=== PATIENT | male | born 1935 | race Caucasian/White ===

== ENCOUNTER 2019-11-04 13:28 | Emergency (ER) | payer OTHER, BC ==
--- NOTE | 2019-11-04 15:01 | RAD REPORT ---
EXAM DESCRIPTION: RAD - Humerus Right - 11/04/2019 2:30 pm CLINICAL HISTORY: Right arm pain status post fall FINDINGS: A humeral fracture is not seen A sclerotic density overlies the lateral scapula. This could represent a fracture or overlapping of n ormal structures. If the patient has scapular pain then CT would be recommended
--- NOTE | 2019-11-04 15:15 | ER ---
Nurse's Notes 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 Transition of care: patient was not received from another setting of care. Onset of symptoms was November 04, 2019. Risk Assessment: Do you want to hurt yourself or someone else? Patient reports no desire to harm self or others. Initial Sepsis Screen: Does the patient meet any 2 criteria? No. Patient's initial sepsis screen is negative. Does the patient have a suspected source of infection? No. Patient's initial sepsis screen is negative. Care prior to arrival: None. 13:41 Method Of Arrival: Ambulatory hb 13:41 Acuity: KANNAN 4 hb Historical: - Allergies: 13:42 No Known Allergies; hb - Home Meds: 13:42 levothyroxine 150 mcg tab 1 tab once daily [Active]; propafenone 225 mg Oral tab 1 tab hb twice a day [Active]; Xarelto 20 mg Oral tab once daily [Active]; - PMHx: 13:42 Atrial Fib; Hypothyroidism; hb - PSHx: 13:42 Appendectomy; Disc surgery; Urolift; hb - Immunization history:: Adult Immunizations up to date. - Social history:: Smoking status: Patient/guardian denies using tobacco. - Ebola Screening: : No symptoms or risks identified at this time. Screenin:03 Abuse screen: Denies threats or abuse. Nutritional screening: No deficits noted. ae4 Tuberculosis screening: No symptoms or risk factors identified. Fall Risk None identified. Assessment: 14:00 General: Appears in no apparent distress. uncomfortable, Behavior is calm, cooperative. ae4 Pain: Complains of pain in right bicep. Neuro: Level of Consciousness is awake, alert, obeys commands, Oriented to person, place, time, situation. Cardiovascular: Patient's skin is warm and dry. Respiratory: Airway is patent Respiratory effort is even, unlabored, Respiratory pattern is regular, symmetrical. GI: No signs and/or symptoms were reported involving the gastrointestinal system. Abdomen is round non-distended. : No signs and/or symptoms were reported regarding the genitourinary system. EENT: wears glasses.. Derm: Skin is pale. Musculoskeletal: no visual deformity or bruising to right upper arm. 14:58 Reassessment: Patient appears in no apparent distress at this time. No changes from ae4 previously documented assessment. Patient and/or family updated on plan of care and expected duration. Pain level reassessed. Patient up to restroom, ambulated with steady gait. Vital Signs: 13:42 BP 179 / 89; Pulse 60; Resp 16; Temp 97.8; Pulse Ox 97% on R/A; Weight 88.45 kg; Height hb 5 ft. 11 in. (180.34 cm); Pain 9/10; 14:00 BP 154 / 73; Pulse 57; Resp 16; Pulse Ox 96% on R/A; ae4 13:42 Body Mass Index 27.20 (88.45 kg, 180.34 cm) hb ED Course: 13:31 Patient arrived in ED. as 13:40 [facility]C [facility] la1 13:40 Sal Arita MD is Attending Physician. la1 13:42 Triage completed. hb 13:42 Arm band placed on. hb 13:58 Jessee Lobo, RN is Primary Nurse. ae4 14:03 Bed in low position. Call light in reach. Pulse ox on. NIBP on. ae4 14:33 Humerus Right XRAY In Process Unspecified. EDMS 15:32 Sling applied to right arm. ae4 15:32 No provider procedures requiring assistance completed. Patient did not have IV access ae4 during this emergency room visit. Administered Medications: No medications were administered Outcome: 15:14 Discharge ordered by . la1 15:32 Discharged to home ambulatory. ae4 15:32 Condition: stable 15:32 Discharge instructions given to patient, Instructed on discharge instructions, follow up and referral plans. Demonstrated understanding of instructions. 15:33 Patient left the ED. ae4 Signatures: Dispatcher [employer] EDMS Leny Acosta as Allen Munoz FNP-C CLAMMER-Cla1 Rand Ross RN RN Jessee Lobo, RONN RN ae4
--- NOTE | 2019-11-04 15:16 | EDPHYS ---
Physician Documentation [facility] Name: Edilberto Son Age: 84 yrs Sex: Male : 1935 Arrival Date: 11/04/2019 Time: 13:31 Bed 20 Private MD: ED Physician Sal Arita HPI: 11/04 13:53 This 84 yrs old Male presents to ER via Ambulatory with complaints of la1 Shoulder Pain. 13:53 The patient or guardian complains of pain, that is acute. Right proximax humerus. la1 Context: [place], resulted from a fall, from a standing position, The patient experiences decreased range of motion, when attempts to raise arm, The patient reports no obvious deformity. Onset: The symptoms/episode began/occurred 3 hour(s) ago. Modifying factors: the symptoms are alleviated by OTC meds, The symptoms are aggravated by lifting weight, movement. Associated signs and symptoms: Pertinent negatives: abdominal pain, chest pain, diaphoresis, neck pain, Numbness in right arm. Severity of symptoms: At their worst the symptoms were mild. Pt reports mechanical fall from standing with impact to right shoulder area, pain with elevation or abduction of right arm. Historical: - Allergies: 13:42 No Known Allergies; hb - Home Meds: 13:42 levothyroxine 150 mcg tab 1 tab once daily [Active]; propafenone 225 mg Oral tab 1 tab hb twice a day [Active]; Xarelto 20 mg Oral tab once daily [Active]; - PMHx: 13:42 Atrial Fib; Hypothyroidism; hb - PSHx: 13:42 Appendectomy; Disc surgery; Urolift; hb - Immunization history:: Adult Immunizations up to date. - Social history:: Smoking status: Patient/guardian denies using tobacco. - Ebola Screening: : No symptoms or risks identified at this time. ROS: 13:55 Constitutional: Negative for fever, chills, and weight loss, Eyes: Negative for injury, la1 pain, redness, and discharge, ENT: Negative for injury, pain, and discharge, Neck: Negative for injury, pain, and swelling, Cardiovascular: Negative for chest pain, palpitations, and edema, Respiratory: Negative for shortness of breath, cough, wheezing, and pleuritic chest pain, Abdomen/GI: Negative for abdominal pain, nausea, vomiting, diarrhea, and constipation, Back: Negative for injury and pain, : Negative for injury, bleeding, discharge, and swelling, MS/Extremity: Negative for injury and deformity. 13:55 MS/extremity: Positive for pain, of the right arm. Exam: 13:56 Constitutional: This is a well developed, well nourished patient who is awake, alert, la1 and in no acute distress. Head/Face: Normocephalic, atraumatic. Eyes: Pupils equal round and reactive to light, extra-ocular motions intact. Skin: Warm, dry with normal turgor. Normal color with no rashes, no lesions, and no evidence of cellulitis. 13:56 Musculoskeletal/extremity: Extremities: noted in the right bicep and right tricep: pain, ROM: limited active range of motion due to pain, limited passive range of motion due to pain, in the right arm, Circulation is intact in all extremities. Pulses: noted to be 3+ in the right radial artery and left radial artery, Perfusion: the extremity is pink, warm, with brisk capillary refill. Vital Signs: 13:42 BP 179 / 89; Pulse 60; Resp 16; Temp 97.8; Pulse Ox 97% on R/A; Weight 88.45 kg; Height hb 5 ft. 11 in. (180.34 cm); Pain 9/10; 14:00 BP 154 / 73; Pulse 57; Resp 16; Pulse Ox 96% on R/A; ae4 13:42 Body Mass Index 27.20 (88.45 kg, 180.34 cm) hb MDM: 13:40 Patient medically screened. la1 15:12 Data reviewed: vital signs, nurses notes, radiologic studies, and as a result, I will la1 discharge patient. Data interpreted: Pulse oximetry: on room air is 96 %. Interpretation: normal. Counseling: I had a detailed discussion with the patient and/or guardian regarding: the historical points, exam findings, and any diagnostic results supporting the discharge/admit diagnosis, radiology results, the need for outpatient follow up, a family practitioner, a orthopedic surgeon, to return to the emergency department if symptoms worsen or persist or if there are any questions or concerns that arise at home. ED course: Xray mentioned concern for pain in scapula, Pt is non-tender in that area and did not have a significant mechanism of injury. Recommended FU with ortho for further evaluation. . 11/04 13:50 Order name: Humerus Right XRAY; Complete Time: 15:06 la1 11/04 15:28 Order name: Sling; Complete Time: 15:28 ae4 Administered Medications: No medications were administered Disposition: 16:02 Co-signature as Attending Physician, Sal Arita MD I agree with the assessment and kdr plan of care. Disposition: 11/04/19 15:14 Discharged to Home. Impression: Pain in right shoulder. - Condition is Stable. - Discharge Instructions: Joint Pain, Musculoskeletal Pain, Shoulder Pain. - Medication Reconciliation Form, Thank You Letter form. - Follow up: Private Physician; When: 2 - 3 days; Reason: Recheck today's complaints, Re-evaluation by your physician. - Problem is new. - Symptoms have improved. Signatures: Dispatcher [employer] EDAL Sal Arita MD MD [facility] Allen Munoz, SHELL PRESS OPERATOR-C SHELL PRESS OPERATOR-Cla1 Rand Ross, RONN RN Jessee Lobo RN RN ae4 Corrections: (The following items were deleted from the chart) 14:07 13:49 Humerus Left+RAD.RAD.BRZ ordered. [facility] EDAL 15:33 15:14 11/04/2019 15:14 Discharged to Home. Impression: Pain in right shoulder. ae4 Condition is Stable. Forms are Medication Reconciliation Form, Thank You Letter, Antibiotic Education, Prescription Opioid Use. Follow up: Private Physician; When: 2 - 3 days; Reason: Recheck today's complaints, Re-evaluation by your physician. Problem is new. Symptoms have improved. la1
[2019-11-04 15:43] VITALS: TEMP 97.8
[2019-11-04 15:44] VITALS: BP 154/73; O2SAT 96
== END 2019-11-04 15:33 | disposition home or self-care (01) ==
LOC: ER 13:28
DX: M25.511 Pain in right shoulder (principal); E03.9 Hypothyroidism, unspecified; I48.91 Unspecified atrial fibrillation; Z79.01 Long term (current) use of anticoagulants
CPT/HCPCS: 99283

== ENCOUNTER 2024-01-25 05:56 | Observation (INO) | payer OTHER, BC ==
[2024-01-25 06:58] LABS: Absolute Basophils 0.1 K/uL (0-0.5); Absolute Eosinophils 0.1 K/uL (0-0.5); Absolute Lymphocytes (CBC) 2.2 K/uL (0.7-4.9); Absolute Monocytes 1.6 K/uL (0.1-1.3); Absolute Neutrophil 4.3 K/uL (1.8-8.0); Basophils % 0.8 % (0-1.3); Eosinophils % 1.2 % (0-4.4); Hematocrit 41.7 % (39.6-49.0); Lymphocytes % 26.1 % (15.3-44.8); MCH 30.3 pg (27.0-35.0); MCHC 33.6 g/dL (32.0-36.0); MCV 90.2 fL (80-100); MPV 8.1 fL (7.6-11.3); Monocytes % 19.7 % (3.3-12.3); Neutrophils % 52.2 % (41.7-73.7); Nucleated Red Blood Cells % 0.1 % (0-0); Platelets 192 thou/uL (152-406); RBC Red Blood Cell Count 4.62 M/uL (4.33-5.43); Red Cell Distribution Width 13.2 % (12.1-15.2)
--- NOTE | 2024-01-25 07:04 | RAD REPORT ---
EXAM DESCRIPTION: RAD - Chest Single View - 01/25/2024 6:38 am CLINICAL HISTORY: CHEST PAIN COMPARISON: Chest Pa And Lat (2 Views) dated 09/15/2016; CHEST SINGLE VIEW dated 12/06/2013; CHEST SIN GLE VIEW dated 07/31/2012; CHEST SINGLE VIEW dated 11/18/2010; CHEST PA AND LAT 2 VIEW dated 06/25/2007 FINDINGS: Lines: None. Lungs: No evidence of edema or pneumonia. Pleural: No significant pleural effusions or pneumothorax. Cardiac: The heart size is within normal limits. Mediastinum: Within normal limits. Bones: No acute fractures. Other: None IMPRESSION: No acute cardiopulmonary disease.
[2024-01-25 07:09] LABS: Anion Gap 9.1 mEq/L (5.0-15.0); Potassium 4.1 mEq/L (3.5-5.1)
--- NOTE | 2024-01-25 07:55 | RAD REPORT ---
EXAM DESCRIPTION: CT - Head Brain Wo Cont - 01/25/2024 7:46 am CLINICAL HISTORY: DIZZINESS COMPARISON: Head Brain Wo Cont dated 12/03/2018; HEAD BRAIN W O CONTRAST dated 01/28/2016 TECHNIQUE: All CT scans are performed using dose optimization technique as appropriate and may inclu de automated exposure control or mA/KV adjustment according to patient size. FINDINGS: No intracranial hemorrhage, hydrocephalus or extra-axial fluid collection.No areas of brai n edema or evidence of midline shift. Mild chronic small vessel ischemic changes. Trace right mastoid fluid. Ethmoid air cell thickening. The calvarium is intact. IMPRESSION: No acute intracranial abnormality.
[2024-01-25 08:00] LABS: Band Neutrophils 3 % (0-1); Differential Total Cells Count 100; Eosinophils 1 % (0-3); Lymphocytes 30 % (15-42); Monocytes 13 % (0-10); Segmented Neutrophils 52 % (40-80); White Blood Cell Scan OK (OK)
[2024-01-25 08:01] LABS: Blood Morphology Comment NOT SEEN (NOT SEEN); Platelet Estimate ADEQ
--- NOTE | 2024-01-25 08:29 | RAD REPORT ---
EXAM DESCRIPTION: CT - C Spine Wo Con - 01/25/2024 8:18 am CLINICAL HISTORY: fall COMPARISON: No comparisons TECHNIQUE: CT Scan was obtained of the cervical spine without contrast. Reformats were provided in t he sagittal and coronal plane. FINDINGS: No acute fracture of the cervical spine. No traumatic malalignment. No prevertebral edema. No significant focal degenerative changes. No suspicious thyroid nodules or lymphadenopathy. The luis fernando g apices are clear. Multilevel degenerative changes are present in the spine. Neural foraminal narrow ing is severe on the left C3-C4, moderate bilaterally at C4-C5, and on the right at C5-C6. IMPRESSION: No fracture or traumatic malalignment of the cervical spine.
--- NOTE | 2024-01-25 09:04 | ER ---
Nurse's Notes [facility] Name: Edilberto Son Age: 88 yrs Sex: Male : 1935 Arrival Date: 01/25/2024 Time: 05:56 Bed 15 Private MD: Diagnosis: Chest pain, unspecified;Dizziness and giddiness;Fall on same level, unspecified;Elevated blood-pressure reading, without diagnosis of hypertension Presentation: 01/24 06:20 Chief complaint: Patient states: I have been having congestion and soar throat for the jb4 past week and for the past 2 days I have been having dizziness and shortness of breath. Coronavirus screen: At this time, the client does not indicate any symptoms associated with coronavirus-19. Ebola Screen: No symptoms or risks identified at this time. Initial Sepsis Screen: Does the patient meet any 2 criteria? No. Patient's initial sepsis screen is negative. Does the patient have a suspected source of infection? No. Patient's initial sepsis screen is negative. Risk Assessment: Do you want to hurt yourself or someone else? Patient reports no desire to harm self or others. Onset of symptoms was January 25, 2024. Transition of care: patient was not received from another setting of care. 06:20 Method Of Arrival: Ambulatory jb4 06:20 Acuity: KANNAN 3 jb4 Triage Assessment: 06:23 General: Appears in no apparent distress. comfortable, Behavior is calm, cooperative. jb4 Pain: Denies pain. Cardiovascular: Patient's skin is warm and dry. Respiratory: Reports shortness of breath at rest Airway is patent Respiratory effort is even, unlabored, Respiratory pattern is regular, symmetrical. Historical: - Allergies: 06:23 No Known Allergies; jb4 - PMHx: 06:23 Atrial Fib; Hypothyroidism; jb4 - PSHx: 06:23 Appendectomy; jb4 - Immunization history:: Adult Immunizations not up to date. - Social history:: Smoking status: Patient denies any tobacco usage or history of. Screenin:44 [facility] ED Fall Risk Assessment (Adult) History of falling in the last 3 months, cm10 including since admission No falls in past 3 months (0 pts) Confusion or Disorientation No (0 pts) Intoxicated or Sedated No (0 pts) Impaired Gait Yes (1 pt) Mobility Assist Device Used No (0 pt) Altered Elimination No (0 pt) Score/Fall Risk Level 0 - 2 = Low Risk Oriented to surroundings, Maintained a safe environment, Hourly rounding (assess needs \T\ fall precautionary measures) done. Abuse screen: Denies threats or abuse. Denies injuries from another. Nutritional screening: No deficits noted. 07:00 Tuberculosis screening: No symptoms or risk factors identified. kc6 Assessment: 06:44 General: Appears in no apparent distress. comfortable, Behavior is calm, cooperative. cm10 06:45 Pain: Denies pain. Neuro: No deficits noted. Level of Consciousness is awake, alert, cm10 obeys commands, Oriented to person, place, time, situation, Reports difficulty swallowing since 1 year dizziness, since Thursday. Respiratory: No deficits noted. Airway is patent Respiratory effort is even, unlabored, Respiratory pattern is regular, symmetrical, Breath sounds are clear bilaterally. GI: No deficits noted. No signs and/or symptoms were reported involving the gastrointestinal system. : No deficits noted. No signs and/or symptoms were reported regarding the genitourinary system. EENT: No deficits noted. Reports difficulty swallowing. Derm: No deficits noted. Skin is intact, Skin is pink, warm \T\ dry. Musculoskeletal: No deficits noted. Range of motion: intact in all extremities. 07:11 Reassessment: Patient appears in no apparent distress at this time. No changes from 6 previously documented assessment. Patient and/or family updated on plan of care and expected duration. Pain level reassessed. Patient is alert, oriented x 3, equal unlabored respirations, skin warm/dry/pink. 08:04 Reassessment: Patient appears in no apparent distress at this time. No changes from kc6 previously documented assessment. Patient and/or family updated on plan of care and expected duration. Pain level reassessed. Patient is alert, oriented x 3, equal unlabored respirations, skin warm/dry/pink. 09:38 Reassessment: Patient appears in no apparent distress at this time. No changes from kc6 previously documented assessment. Patient and/or family updated on plan of care and expected duration. Pain level reassessed. Patient is alert, oriented x 3, equal unlabored respirations, skin warm/dry/pink. Vital Signs: 06:20 BP 157 / 70; Pulse 51; Resp 12; Temp 98.3(O); Pulse Ox 95% on R/A; Weight 79.38 kg (R); jb4 Height 5 ft. 4 in. (R); Pain 0/10; 07:11 BP 145 / 70; Pulse 45; Resp 14 S; Pulse Ox 98% on R/A; kc6 08:04 BP 144 / 74; Pulse 47; Resp 18 S; Pulse Ox 100% on R/A; kc6 09:38 BP 169 / 69; Pulse 49; Resp 18 S; Pulse Ox 100% on R/A; kc6 06:20 Body Mass Index 30.04 (79.38 kg, 162.56 cm) jb4 06:20 Pain Scale: Adult jb4 ED Course: 05:58 Patient arrived in ED. jj6 06:15 EKG done, by ED staff. cm10 06:23 Triage completed. jb4 06:23 Arm band placed on right wrist. jb4 06:24 EKG completed in triage. Results shown to MD. jb4 06:40 XRAY Chest (1 view) In Process Unspecified. EDMS 06:43 Basic Metabolic Panel Sent. cm10 06:43 CBC with Diff Sent. cm10 06:43 Troponin HS Sent. cm10 06:43 Initial lab(s) drawn, by ok, sent to lab. Inserted saline lock: 20 gauge in right cm10 forearm, using aseptic technique. Blood collected. 06:44 Patient maintains SpO2 saturation greater than 95% on room air. cm10 07:00 Report received from RONN Briggs. kc6 07:03 Patient has correct armband on for positive identification. Placed in gown. Bed in low cm10 position. Call light in reach. Side rails up X2. 07:04 Report given to RONN Riley. cm10 07:10 Rosemary Mello RN is Primary Nurse. kc6 07:35 James Beltran DO is Attending Physician. ms3 07:48 CT Head Brain wo Cont In Process Unspecified. EDMS 08:17 CT C Spine In Process Unspecified. EDMS 09:03 Lore Duke MD is Hospitalizing Provider. ms3 10:18 No provider procedures requiring assistance completed. Patient admitted, IV remains in kc6 place. Administered Medications: No medications were administered Medication: 06:44 VIS not applicable for this client. cm10 Outcome: 09:03 Decision to Hospitalize by Provider. ms3 10:18 Admitted to ER Hold. Please see [facility] for further documentation. kc6 10:18 Condition: good 10:18 Instructed on the need for admit, 14:53 Patient left the ED. kc6 Signatures: Dispatcher [employer] EDMS Hong Bryan, RN RN jb4 James Beltran DO DO ms3 Jaqueline Matsonj6 Rosemary Mello RN RN kc6 Brigitte Acosta RN RN cm10 Corrections: (The following items were deleted from the chart) 06:46 06:44 Pain: Denies pain. Pain does not radiate. Pain began cm10 cm10
--- NOTE | 2024-01-25 09:04 | EDPHYS ---
Physician Documentation [facility] Name: Edilberto Son Age: 88 yrs Sex: Male : 1935 Arrival Date: 01/25/2024 Time: 05:56 Bed 15 Private MD: ED Physician James Beltran HPI: 01/24 10:11 This 88 yrs old Male presents to ER via Ambulatory with complaints of Cough, Dizziness, ms3 Chest Pain. 10:11 88-year-old male with past medical history of atrial fibrillation and hypothyroidism ms3 presents to the emergency department for dizziness and chest pain that is been ongoing for 3 days. Patient denies any alleviating or inciting factors. Patient states symptoms wax and wane; however, are continuous.. Historical: - Allergies: 06:23 No Known Allergies; jb4 - PMHx: 06:23 Atrial Fib; Hypothyroidism; jb4 - PSHx: 06:23 Appendectomy; jb4 - Immunization history:: Adult Immunizations not up to date. - Social history:: Smoking status: Patient denies any tobacco usage or history of. ROS: 10:11 Constitutional: Negative for fever, and chills. Neck: Negative for injury, pain, and ms3 swelling, 10:11 Respiratory: Negative for shortness of breath, cough, wheezing, and pleuritic chest pain, Abdomen/GI: Negative for abdominal pain, nausea, vomiting, diarrhea, and constipation, MS/Extremity: Negative for injury and deformity, 10:11 Cardiovascular: Positive for chest pain, 10:11 Neuro: Positive for dizziness, Exam: 10:11 Constitutional: This is a well developed, well nourished patient who is awake, alert, ms3 and in no acute distress. Head/Face: Normocephalic, atraumatic. Neck: Trachea midline, no cervical lymphadenopathy. Supple, full range of motion without nuchal rigidity, or vertebral point tenderness. No Meningismus. Chest/axilla: Normal chest wall appearance and motion. Nontender with no deformity. Cardiovascular: Regular rate and rhythm with a normal S1 and S2. No gallops, murmurs, or rubs. Normal PMI, no JVD. No pulse deficits. Respiratory: Lungs have equal breath sounds bilaterally, clear to auscultation and percussion. No rales, rhonchi or wheezes noted. No increased work of breathing, no retractions or nasal flaring. Abdomen/GI: Soft, non-tender, with normal bowel sounds. No distension or tympany. No guarding or rebound. No evidence of tenderness throughout. Skin: Warm, dry with normal turgor. Normal color with no rashes, no lesions, and no evidence of cellulitis. MS/ Extremity: Pulses equal, no cyanosis. Neurovascular intact. Full, normal range of motion. 10:11 Neuro: Orientation: is normal, Mentation: is normal, Memory: is normal, Cranial nerves: CN I not tested, CN II- XII are normal as tested, Cerebellar function: normal finger to nose testing, Motor: is normal, Sensation: is normal, no obvious gross deficits, 10:11 ECG was reviewed by the Attending Physician. ms3 Vital Signs: 06:20 BP 157 / 70; Pulse 51; Resp 12; Temp 98.3(O); Pulse Ox 95% on R/A; Weight 79.38 kg (R); jb4 Height 5 ft. 4 in. (R); Pain 0/10; 07:11 BP 145 / 70; Pulse 45; Resp 14 S; Pulse Ox 98% on R/A; kc6 08:04 BP 144 / 74; Pulse 47; Resp 18 S; Pulse Ox 100% on R/A; kc6 09:38 BP 169 / 69; Pulse 49; Resp 18 S; Pulse Ox 100% on R/A; kc6 06:20 Body Mass Index 30.04 (79.38 kg, 162.56 cm) jb4 06:20 Pain Scale: Adult jb4 MDM: 06:54 Patient medically screened. ci 10:11 Differential Diagnosis: Other HI vs Syncope vs Electrolyte abnormality. Data reviewed: ms3 vital signs, nurses notes, lab test result(s), EKG, radiologic studies, and as a result, I will admit patient. Consideration of Admission/Observation Patient was admitted/placed on observation. Management of patient was discussed with the following: Hospitalist: Dr Duke. Independent interpretation of the following test(s) in the Emergency Department EKG: See my EKG interpretation above. Counseling: I had a detailed discussion with the patient and/or guardian regarding the historical points, exam findings, and any diagnostic results supporting the discharge/admit diagnosis, lab results, radiology results, the need for further work-up and treatment in the hospital. ED course: Discussed case with Dr. Duke and he accepts patient. Discussed plan for admission with patient and he understands and agrees with plan. All questions were answered. 01/24 06:18 Order name: Basic Metabolic Panel; Complete Time: 07:31 cm10 01/24 06:18 Order name: CBC with Diff; Complete Time: 08:06 cm10 01/24 06:18 Order name: Troponin HS; Complete Time: 07:31 cm10 01/24 07:00 Order name: CBC Smear Scan; Complete Time: 08:06 EDMS 01/24 08:01 Order name: Manual Differential; Complete Time: 08:06 EDMS 01/24 11:59 Order name: Troponin High Sensitivity; Complete Time: 13:27 EDMS 01/24 12:20 Order name: Urinalysis w/ reflexes; Complete Time: 13:27 EDMS 01/24 06:18 Order name: XRAY Chest (1 view); Complete Time: 07:31 cm10 01/24 07:31 Order name: CT Head Brain wo Cont; Complete Time: 08:06 ci 01/24 08:07 Order name: CT C Spine; Complete Time: 09:01 ms3 01/24 09:21 Order name: Echo with Doppler EDMS 01/24 06:18 Order name: EKG; Complete Time: 06:19 cm10 01/24 09:19 Order name: CONS Physician Consult EDMS 01/24 06:18 Order name: Cardiac monitoring; Complete Time: 06:25 cm10 01/24 06:18 Order name: EKG - Nurse/Tech; Complete Time: 06:25 cm10 01/24 06:18 Order name: IV Saline Lock; Complete Time: 06:43 cm10 01/24 06:18 Order name: Labs collected and sent; Complete Time: 06:43 cm10 01/24 06:18 Order name: O2 Per Protocol; Complete Time: 06:25 cm10 01/24 06:18 Order name: O2 Sat Monitoring; Complete Time: 06:25 cm10 EC:11 Rate is 51 beats/min. Rhythm is regular. Left axis deviation noted. OK interval is ms3 prolonged. QRS interval is normal. QT interval is normal. Clinical impression: NSR w/ Non-specific ST/T Changes. Interpreted by me. Reviewed by me. Administered Medications: No medications were administered Disposition Summary: 01/25/24 09:03 Hospitalization Ordered Notes: Hospitalization Status: Observation ms3 Provider: Lore Duke ms3 Condition: Stable ms3 Problem: new ms3 Symptoms: are unchanged ms3 Bed/Room Type: Standard ms3 Location: Telemetry/MedSurg (observation)(01/25/24 14:08) bd Room Assignment: 409(01/25/24 14:08) bd Diagnosis - Chest pain, unspecified ms3 - Dizziness and giddiness ms3 - Fall on same level, unspecified ms3 - Elevated blood-pressure reading, without diagnosis of hypertension ms3 Forms: - Medication Reconciliation Form ms3 - SBAR form ms3 - Leadership Thank You Letter ms3 Signatures: Dispatcher [employer] EDMS Maura Collado James, RN RN jb4 James Beltran DO DO ms3 Brigitte Acosta RN RN cm10 Liseth Haro Corrections: (The following items were deleted from the chart) 10:24 09:03 Telemetry/MedSurg (observation) ms3 bd 10:24 09:03 ms3 bd 14:08 10:24 [facility] ER HOLD bd bd 14:08 10:24 ERHOLD- bd bd
--- NOTE | 2024-01-25 09:13 | P.HP ---
Certification for Inpatient Patient admitted to: Observation <Debby Claros - Last Filed: 01/25/24 18:16> Patient History Date of Service: 01/25/24 <Lore Duke - Last Filed: 01/25/24 15:57> Date of Service: 01/25/24 Reason for admission: Chest pain History of Present Illness: 88-year-old male with a past medical history of atrial fibrillation, hypothyroidism, presented to the ER with fall. He reports sinus infection, dizziness, unsteady gait. Reports this is nasal congestion, trouble swallowing, he report he sees Dr. Pena for cardiology. No reported fever, nausea vomiting diarrhea, shortness of breath. EKG atrial fibrillation rate in the 40s, cardiology notified. Laboratory evaluation CBC unremarkable, plan to admit for A-fib rate in the 40s, chest pain, dizziness. .ER evaluation BP 157 / 70; Pulse 51; Resp 12; Temp 98.3(O); Pulse Ox 95% on R/A; Weight 79.38 kg (R) Height 5 ft. 4 in. (R); Pain 0/10; plan to admit for chest pain, dizziness, fall, cardiology to consult for evaluation - Past Medical/Surgical History -: A-fib -: Chronic anticoagulation on Xarelto -: Hypothyroidism -: Appendectomy -: UroLift -: Do surgery - Family History Father -: Heart disease Mother -: Cancer <Debby Claros - Last Filed: 01/25/24 18:16> Allergies No Known Allergies Allergy (Verified 01/25/24 15:17) Home Medications: Levothyroxine Sodium 150 mcg PO DAILY 12/28/17 Rivaroxaban [Xarelto] 20 mg PO DAILY 12/28/17 Ezetimibe [Zetia*] 10 mg PO DAILY 01/25/24 Rosuvastatin [Crestor*] 10 mg PO DAILY 01/25/24 Review of Systems Per HPI <Debby Claros - Last Filed: 01/25/24 18:16> Physical Examination - Studies Laboratory Data (last 24 hrs) 01/25/24 01/25/24 06:36 06:36 WBC 8.30 Hgb 14.0 Hct 41.7 Plt Count 192 Sodium 136 Potassium 4.1 BUN 24 H Creatinine 1.16 Glucose 117 H <Bo Dukesarahashok Mckeon - Last Filed: 01/25/24 15:57> - Physical Exam General: Alert, In no apparent distress, Oriented x3 HEENT: Atraumatic, Other (Frontal sinus tenderness) Neck: Supple, JVD not distended Respiratory: Clear to auscultation bilaterally, Normal air movement Cardiovascular: Normal pulses, Other (Atrial fibrillation rate in the 40) Capillary refill: <2 Seconds Gastrointestinal: Normal bowel sounds, Soft and benign Musculoskeletal: No clubbing, No swelling Integumentary: No rashes, No breakdown Neurological: Normal speech, Normal strength at 5/5 x4 extr - Studies Laboratory Data (last 24 hrs) 01/25/24 01/25/24 06:36 06:36 WBC 8.30 Hgb 14.0 Hct 41.7 Plt Count 192 Sodium 136 Potassium 4.1 BUN 24 H Creatinine 1.16 Glucose 117 H <Debby Claros - Last Filed: 01/25/24 18:16> Assessment and Plan Physician Review Additional Text: Pt seen and examined. I agree with the note by the SUPERVISOR HOUSECLEANER. Pt is an 88yo male with past medical history of atrial fibrillation and hypothyroidism who presents in the Er s/p fall. Pt reports near syncope at home. On admission, he complained of chest pain,dizziness, nasal congestion that is associated with maxillary sinus tenderness. He is also coughing up yellow phlegm. Pt reports esophageal dysphagia to solid food. Laboratory studies show wbc 8.3, Hgb 14, K 4.1, cr 1.16 and glucose 117. CXR is unremarkable and CT head is unremarkable. Atbedside, pt is in NAD A/P; Maxillary sinusitis: Will give augmentin. Esophageal dysphagia: Will consult Speech tehrapist for possible MBS. Will also consult GI for possible EGD. Near syncope: Will order orthostatic vital signs, Echo and carotid ultrasound. A. fib: Continue telemetry, BB and AC Hypothyroidism: Synthroid DVT ppx: SCD <JolynnMynor cmolya Mckeon - Last Filed: 01/25/24 15:57> - Plan Assessment plan Fall Dizziness A-fib heart rate in the 40s Fall precautions, PT eval ambulation Echo ordered Cardiology consult, teleChest pain rule out History of A-fib RVR Essential hypertension Chronic anticoagulationmetry Serial trend troponin unremarkable PT eval CT of the head Trace right mastoid fluid. Ethmoid air cell thickening. The calvarium is intact. IMPRESSION: No acute intracranial abnormality. CT of the cervical spine IMPRESSION: No fracture or traumatic malalignment of the cervical spine. Chest x-ray IMPRESSION: No acute cardiopulmonary disease. Sinus infection P.o. Augmentin, Flonase Dysphagia Swallow eval, GI consult Full code DVT continue home Xarelto Diet cardiac Disposition Home Discharge Plan: Home - Advance Directives Does patient have a Living Will: No Does patient have a Durable POA for Healthcare: No - Code Status/Comfort Care Code Status: Full Code Critical Care: No Time Spent Managing Pts Care (In Minutes): 55 <Debby Claros - Last Filed: 01/25/24 18:16>
[2024-01-25] MEDS ORDERED: MORPHINE 2 MG/ML SYR IV PRN (09:23)
[2024-01-25] MEDS ORDERED: ACETAMINOPHEN 500 MG TAB PO PRN (10:20)
[2024-01-25 12:20] LABS: Specific Gravity 1.016 (1.005-1.030); Sqamous Epithelial <5 /HPF (None Seen); Urine Bacteria None Seen /HPF (<20); Urine Bilirubin NEGATIVE (Negative); Urine Blood Trace (Negative); Urine Clarity Turbid (Clear); Urine Color Yellow (Yellow); Urine Culture Reflex Order NOT NEEDED; Urine Glucose NEGATIVE (Negative); Urine Ketones NEGATIVE (Negative); Urine Microscopic Reflex YN ORDER UMIC; Urine Mucus Slight /HPF (None Seen); Urine Nitrite NEGATIVE (Negative); Urine Protein TRACE (Negative); Urine Urobilinogen Normal (Normal); Urine WBC <5 /HPF (<5)
[2024-01-25] MEDS ORDERED: PNEUMOCOCCAL VACCINE 0.5 ML IMVAC ONE (14:00)
[2024-01-25] MEDS ORDERED: INFLUENZA VACCINE (for 6+ mo) 0.5 ML DOSE IMVAC ONE (14:00)
[2024-01-25] MEDS: HYDRALAZINE HCL 20 MG/ML VIAL IV PRN (17:26)
[2024-01-25] MEDS: RIVAROXABAN 20 MG TABLET PO SCH (17:48)
[2024-01-25] MEDS: FLUTICASONE 50MCG NASAL SPRAY NAS SCH (20:54)
[2024-01-25] MEDS: AMOX/K CLAV 875 MG TAB PO SCH (20:54)
[2024-01-25] MEDS ORDERED: AMOX/K CLAV 875 MG TAB PO SCH (21:00)
[2024-01-25] MEDS ORDERED: ATORVASTATIN 40 MG TAB PO SCH (21:00)
[2024-01-26] MEDS: ONDANSETRON 4 MG/2 ML VIAL IV PRN (00:08)
[2024-01-26 02:35] LABS: Absolute Basophils 0.1 K/uL (0-0.5); Absolute Eosinophils 0.1 K/uL (0-0.5); Absolute Lymphocytes (CBC) 2.6 K/uL (0.7-4.9); Absolute Monocytes 0.9 K/uL (0.1-1.3); Absolute Neutrophil 7.3 K/uL (1.8-8.0); Basophils % 0.6 % (0-1.3); Eosinophils % 1.2 % (0-4.4); Hematocrit 48.2 % (39.6-49.0); Hemoglobin 16.2 g/dL (13.6-17.9); Lymphocytes % 23.4 % (15.3-44.8); MCH 30.5 pg (27.0-35.0); MCHC 33.5 g/dL (32.0-36.0); MCV 90.9 fL (80-100); MPV 8.1 fL (7.6-11.3); Neutrophils % 66.8 % (41.7-73.7); Nucleated Red Blood Cells % 0.1 % (0-0); Platelets 218 thou/uL (152-406); Red Cell Distribution Width 13.1 % (12.1-15.2)
[2024-01-26 02:57] LABS: Magnesium 2.5 mg/dL (1.6-2.4); Thyroid Stimulating Hormone 0.396 uIU/mL (0.358-3.740)
[2024-01-26] MEDS: ZOLPIDEM TARTRATE 10 MG TABLET PO ONE (03:12)
[2024-01-26] MEDS: LEVOTHYROXINE SOD 0.075 MG TAB PO SCH (06:06)
[2024-01-26] MEDS: ASPIRIN EC 81 MG TAB PO SCH (07:56)
[2024-01-26] MEDS: EZETIMIBE 10 MG TAB PO SCH (07:56)
[2024-01-26] MEDS: ROSUVASTATIN 10 MG TAB PO SCH (07:56)
[2024-01-26] MEDS ORDERED: HOME MED 1 EA UNK (Levothyroxine Sodium [Levothyroxine Sodium] 150 MCG Tablet) PO SCH (09:00)
[2024-01-26] MEDS ORDERED: ASPIRIN EC 81 MG TAB PO SCH (09:00)
--- NOTE | 2024-01-26 09:53 | P.PN ---
Subjective Date of Service: 01/26/24 Chief Complaint: Chest pain Admitted with chest pain, dizziness, atrial fibrillation heart rate in the 40s, Cardiology to eval - Physical Exam General: Alert, In no apparent distress, Oriented x3 HEENT: Atraumatic, Other (Frontal sinus tenderness) Neck: Supple, JVD not distended Respiratory: Clear to auscultation bilaterally, Normal air movement Cardiovascular: Normal pulses, Other (Atrial fibrillation rate in the 40) Capillary refill: <2 Seconds Gastrointestinal: Normal bowel sounds, Soft and benign Musculoskeletal: No clubbing, No swelling Integumentary: No rashes, No breakdown Neurological: Normal speech, Normal strength at 5/5 x4 extr <Debby Claros - Last Filed: 01/26/24 09:50> Date of Service: 01/26/24 <Lore Duke - Last Filed: 01/26/24 14:07> Review of Systems Per HPI <Debby Claros - Last Filed: 01/26/24 09:50> Physical Examination - Vital Signs Temperature: 97.5 F Blood Pressure: 133/60 Pulse: 74 Respirations: 18 Pulse Ox (%): 93 <Debby Claros Last Filed: 01/26/24 09:50> Assessment And Plan - Plan Assessment plan Fall Dizziness A-fib heart rate in the 40s Fall precautions, PT eval ambulation Echo ordered Cardiology consult, teleChest pain rule out History of A-fib RVR Essential hypertension Chronic anticoagulationmetry Serial trend troponin unremarkable PT eval CT of the head Trace right mastoid fluid. Ethmoid air cell thickening. The calvarium is intact. IMPRESSION: No acute intracranial abnormality. CT of the cervical spine IMPRESSION: No fracture or traumatic malalignment of the cervical spine. Chest x-ray IMPRESSION: No acute cardiopulmonary disease. Sinus infection P.o. Augmentin, Flonase Dysphagia Swallow eval, GI consult Acute kidney injury unknown baseline BUN 31 creatinine 1.45 Full code DVT continue home Xarelto Diet cardiac Disposition Home Discharge Plan: Home - Code Status/Comfort Care Code Status: Full Code Critical Care: No Time Spent Managing PTS Care (In Minutes): 35 <Debby Claros - Last Filed: 01/26/24 09:50> Physician Review Additional Text: 01/26/24 14:02 Pt seen and examined. I agree with the note by the CONCESSION MANAGER. Consulted Cardiology for A. fib. GI evaluated pt and recommended outpt follow up for dysphagia. Waiting for SEMICONDUCTOR WAFER INSPECTOR eval. Continue Augmentin for sinusitis. CT head is unremarkable. 01/26/24 14:07 <Lore Duke - Last Filed: 01/26/24 14:07>
[2024-01-26 13:04] VITALS: O2SAT 96
--- NOTE | 2024-01-26 14:01 | RAD REPORT ---
EXAM DESCRIPTION: RAD - Barium Swallow Modified - 01/26/2024 12:08 pm CLINICAL HISTORY: Trouble swallowing COMPARISON: None. TECHNIQUE: The patient was given liquid, semi-solid and solid forms of barium. Lateral view fluorosc opic imaging was performed in conjunction with speech pathology service. Fluoro time: 2:15 minutes Skin dose: 9.45 mGy FINDINGS: Repeated flash laryngeal penetration with multiple consistencies. Prominent cricopharyngea l bar noted. Moderate pharyngeal posterior wall residues. No evidence of sho aspiration. IMPRESSION: Flash laryngeal penetration with multiple consistencies. No evidence of sho aspiration . Please refer to speech pathology report for additional details.
--- NOTE | 2024-01-26 14:11 | EKG ---
Test Date: 2024-01-25 Test Time: 05:11:14 Inspector Open Die: KAMILLA MEASUREMENT RESULTS: Intervals: Rate: 51 IN: 282 QRSD: 100 QT: 420 QTc: 387 Anderson: P: 41 IN: 282 QRS: -39 T: 85 INTERPRETIVE STATEMENTS: Sinus bradycardia with 1st degree AV block Left axis deviation Left ventricular hypertrophy with repolarization abnormality Abnormal ECG Compared to ECG 01/09/2018 09:29:43 No significant changes Electronically Signed On 01-26-24 14:06:08 CDT by Loco Pena
--- NOTE | 2024-01-26 16:27 | P.DS ---
Admission Date: 01/25/24 Discharge Date: 01/26/24 Reason for Admission: Chest pain Brief History of Present Illness: 88-year-old male with a past medical history of atrial fibrillation, hypothyroidism, presented to the ER with fall. He reports sinus infection, dizziness, unsteady gait. Reports this is nasal congestion, trouble swallowing, he report he sees Dr. Pena for cardiology. No reported fever, nausea vomiting diarrhea, shortness of breath. EKG atrial fibrillation rate in the 40s, cardiology notified. Laboratory evaluation CBC unremarkable, plan to admit for A-fib rate in the 40s, chest pain, dizziness. .ER evaluation BP 157 / 70; Pulse 51; Resp 12; Temp 98.3(O); Pulse Ox 95% on R/A; Weight 79.38 kg (R) Height 5 ft. 4 in. (R); Pain 0/10; plan to admit for chest pain, dizziness, fall, cardiology to consult for evaluation - Physical Exam General: Alert, In no apparent distress, Oriented x3 HEENT: Atraumatic, Other (Frontal sinus tenderness) Neck: Supple, JVD not distended Respiratory: Clear to auscultation bilaterally, Normal air movement Cardiovascular: Normal pulses, Other sinus rhythm first-degree AV block rate 51 Capillary refill: <2 Seconds Gastrointestinal: Normal bowel sounds, Soft and benign Musculoskeletal: No clubbing, No swelling Integumentary: No rashes, No breakdown Neurological: Normal speech, Normal strength at 5/5 x4 extr Hospital Course: 88 year-old male patient presented with dizziness and fall, dysphagia. Was noted to have sinus rhythm with a first-degree AV block rate 51 left ventricular hypertrophy. Patient was evaluated by cardiology. He was evaluated for speech therapy for swallowing difficulties. Condition improved with speech therapy evaluation. Patient tolerating diet, stable for discharge to home with follow-up appointment with primary care physician. Follow-up with cardiology after discharge PROBLEM: Dizziness Sinus bradycardia with first-degree AV block rate 51 Dysphagia Fall Sinus infection Follow-up with Dr. Addison for outpatient dysphagia Evaluated by physical therapy CT of the cervical spine negative for fracture CT of the head negative for acute abnormality Soft bite-size food recommended after speech eval, Treated with Augmentin for sinus infection Follow-up with cardiology after discharge Continue home medicines as previously prescribed GOAL: Clear understanding of disease process INSTRUCTIONS: Physician Discharge Instructions: -Follow-up with PCP in 1 to 2 weeks -Please callif any questions regarding hospital stay -Please call nursing station at [phone] if any nursing or medication questions -Return to the emergency room if symptoms worsen Diet: ADA, low sodium Activity: Fall precautions <Debby Claros - Last Filed: 01/26/24 16:34> Admission Date: 01/25/24 Discharge Date: 01/26/24 Hospital Course: Pt seen and examined. I agree with the note by the GLOVE TURNER AND FORMER. Pt was advised to continue soft and bite size meals. Follow up with GI for EGD. Follow up with Cardiology for further evaluation of bradycardia. Continue Augmentin for sinusitis. Pt requested to be discharged. Ok to discharge pt. <Lore Duke - Last Filed: 01/26/24 16:48> Disposition: ROUTINE DISCHARGE Vital Signs/Physical Exam: Temp Pulse Resp BP Pulse Ox 97.2 F 65 19 108/62 96 01/26/24 12:00 01/26/24 12:00 01/26/24 12:00 01/26/24 12:00 01/26/24 12:00 Laboratory Data at Discharge: WBC 11.00 thou/uL (4.3-10.9) H 01/26/24 02:05 Hgb 16.2 g/dL (13.6-17.9) D 01/26/24 02:05 Hct 48.2 % (39.6-49.0) 01/26/24 02:05 Plt Count 218 thou/uL (152-406) 01/26/24 02:05 Sodium 137 mEq/L (136-145) 01/26/24 02:05 Potassium 4.0 mEq/L (3.5-5.1) 01/26/24 02:05 BUN 31 mg/dL (7-18) H 01/26/24 02:05 Creatinine 1.45 mg/dL (0.70-1.30) H 01/26/24 02:05 Glucose 134 mg/dL (74-106) H 01/26/24 02:05 Magnesium 2.5 mg/dL (1.6-2.4) H 01/26/24 02:05 Triglycerides 109 mg/dL (<150) 01/26/24 02:05 Cholesterol 118 mg/dL (<200) 01/26/24 02:05 HDL Cholesterol 39 mg/dL (40-60) L 01/26/24 02:05 Cholesterol/HDL Ratio 3.03 01/26/24 02:05 <Debby Claros - Last Filed: 01/26/24 16:34> Vital Signs/Physical Exam: Temp Pulse Resp BP Pulse Ox 97.2 F 65 19 108/62 96 01/26/24 12:00 01/26/24 12:00 01/26/24 12:00 01/26/24 12:00 01/26/24 12:00 Laboratory Data at Discharge: WBC 11.00 thou/uL (4.3-10.9) H 01/26/24 02:05 Hgb 16.2 g/dL (13.6-17.9) D 01/26/24 02:05 Hct 48.2 % (39.6-49.0) 01/26/24 02:05 Plt Count 218 thou/uL (152-406) 01/26/24 02:05 Sodium 137 mEq/L (136-145) 01/26/24 02:05 Potassium 4.0 mEq/L (3.5-5.1) 01/26/24 02:05 BUN 31 mg/dL (7-18) H 01/26/24 02:05 Creatinine 1.45 mg/dL (0.70-1.30) H 01/26/24 02:05 Glucose 134 mg/dL (74-106) H 01/26/24 02:05 Magnesium 2.5 mg/dL (1.6-2.4) H 01/26/24 02:05 Triglycerides 109 mg/dL (<150) 01/26/24 02:05 Cholesterol 118 mg/dL (<200) 01/26/24 02:05 HDL Cholesterol 39 mg/dL (40-60) L 01/26/24 02:05 Cholesterol/HDL Ratio 3.03 01/26/24 02:05 <Lore Duke - Last Filed: 01/26/24 16:48> Time spent managing pt's care (in minutes): 55 <Debby Claros - Last Filed: 01/26/24 16:34> <Lore Duke - Last Filed: 01/26/24 16:48> Home Medications: Levothyroxine Sodium 150 mcg PO DAILY 12/28/17 Rivaroxaban [Xarelto*] 20 mg PO DAILY 12/28/17 Ezetimibe [Zetia*] 10 mg PO DAILY 01/25/24 Rosuvastatin [Crestor*] 10 mg PO DAILY 01/25/24 Amox/Clavulanate [Augmentin 875-125 Tab*] 875 mg PO BID 7 Days #14 tab 01/26/24 Ezetimibe [Zetia*] 10 mg PO DAILY tab 01/26/24 Fluticasone [Flonase 50MCG Nasal [place]*] 1 sprays HIEN BID bottle 01/26/24 New Medications: Amox/Clavulanate [Augmentin 875-125 Tab*] 875 mg PO BID 7 Days #14 tab Physician Discharge Instructions: 88 year-old male patient presented with dizziness and fall, dysphagia. Was noted to have sinus rhythm with a first-degree AV block rate 51 left ventricular hypertrophy. Patient was evaluated by cardiology. He was evaluated for speech therapy for swallowing difficulties. Condition improved with speech therapy evaluation. Patient tolerating diet, stable for discharge to home with follow-up appointment with primary care physician. Follow-up with cardiology after discharge PROBLEM: Dizziness Sinus bradycardia with first-degree AV block rate 51 Dysphagia Fall Sinus infection Soft bite-size food recommended after speech eval, Follow-up with GI Dr. Addison for difficulty swallowing, dysphagia Evaluated by physical therapy for prior fall CT of the cervical spine negative for fracture CT of the head negative for acute abnormality Treated with Augmentin for sinus infection Follow-up with cardiology after discharge Continue home medicines as previously prescribed GOAL: Clear understanding of disease process INSTRUCTIONS: Physician Discharge Instructions: -Follow-up with PCP in 1 to 2 weeks -Please callif any questions regarding hospital stay -Please call nursing station at [phone] if any nursing or medication questions -Return to the emergency room if symptoms worsen Followup: Loco Pena MD [ACTIVE - CAN ADMIT] - Zay Duarte MD [Primary Care Provider] - Hubert Dumont MD [OUTSIDE PHYSICIAN] -
--- NOTE | 2024-01-26 16:47 | P.CNS ---
Date of Consult: 01/26/24 Chief Complaint: Chest pain History of Present Illness: Patient with PMH of atrial fibrillation presented with dizzy spell, near syncope after walking to the bathroom, he denies passing out, no chest pain, no palpitations, no SOB, no syncope. Allergies No Known Allergies Allergy (Verified 01/25/24 15:17) Home Medications: Levothyroxine Sodium 150 mcg PO DAILY 12/28/17 Rivaroxaban [Xarelto*] 20 mg PO DAILY 12/28/17 Ezetimibe [Zetia*] 10 mg PO DAILY 01/25/24 Rosuvastatin [Crestor*] 10 mg PO DAILY 01/25/24 Amox/Clavulanate [Augmentin 875-125 Tab*] 875 mg PO BID 7 Days #14 tab 01/26/24 Ezetimibe [Zetia*] 10 mg PO DAILY tab 01/26/24 Fluticasone [Flonase 50MCG Nasal [place]*] 1 sprays HIEN BID bottle 01/26/24 - Past Medical/Surgical History Diabetic: No -: A-fib -: Chronic anticoagulation on Xarelto -: Hypothyroidism -: abulation ~ 15 yrs ago -: Appendectomy -: UroLift -: Do surgery - Family History Father Medical History: Heart disease Mother Medical History: Cancer - Social History Alcohol use: Yes CD- Drugs: No Caffeine use: Yes Place of Residence: Home Review of Systems 10-point ROS is otherwise unremarkable Physical Examination Temp Pulse Resp BP Pulse Ox 97.2 F 65 19 108/62 96 01/26/24 12:00 01/26/24 12:00 01/26/24 12:00 01/26/24 12:00 01/26/24 12:00 General: Alert, Oriented x3 HEENT: Atraumatic Neck: Supple Respiratory: Clear to auscultation bilaterally Cardiovascular: No edema, Normal S1 S2 Gastrointestinal: Normal bowel sounds Conclusions/Impression: Atrial fibrillation Patient is rate controlled, patient HR usually low so no rate controlling medications. Continue Xarelto as blood thinner. Patient will need event monitor and that will be scheduled through our office.
[2024-01-26 17:44] VITALS: BP 113/62; TEMP 97.1
--- NOTE | 2024-01-27 07:35 | ECHO ---
HEIGHT: 5 ft 4 in WEIGHT: 175 lb 0 oz DATE OF STUDY: 01/26/[address]: Debby Claros 2-DIMENSIONAL: YES M.MODE: YES DOPPLER: YES COLOR FLOW: YES TDS: PORTABLE: YES DEFINITY: BUBBLE STUDY: DIAGNOSIS: ELEVATED BNP, CHEST PAIN CARDIAC HISTORY: CATHERIZATION: NO SURGERY: NO PROSTHETIC VALVE: NO PACEMAKER: NO MEASUREMENTS (cm) DIASTOLIC (NORMALS) SYSTOLIC (NORMALS) IVSd 1.1 (0.6-1.2) LA Diam 2.4 (1.9-4.0) LVEF 63% LVIDd 3.4 (3.5-5.7) LVIDs 2.3 (2.0-3.5) %FS 33% LVPWd 1.1 (0.6-1.2) Ao Diam 2.7 (2.0-3.7) 2 DIMENSIONAL ASSESSMENT: RIGHT ATRIUM: NORMAL LEFT ATRIUM: NORMAL RIGHT VENTRICLE: NORMAL LEFT VENTRICLE: NORMAL TRICUSPID VALVE: NORMAL MITRAL VALVE: TRACE MITRAL REGURGITATION PULMONIC VALVE: MILD PULMONIC INSUFFICIENCY AORTIC VALVE: MILD AORTIC INSUFFICIENCY PERICARDIAL EFFUSION: NONE AORTIC ROOT: NORMAL LEFT VENTRICULAR WALL MOTION: NORMAL DOPPLER/COLOR FLOW: SEE BELOW COMMENTS: 1. NORMAL LEFT VENTRICULAR EJECTION FRACTION 60-65% WITH NORMAL WALL MOTION 2. MODERATE DIASTOLIC DYSFUNCTION 3. MILD AORTIC INSUFFICIENCY TECHNOLOGIST: DAHLIA MAYNARD
== END 2024-01-26 17:30 | disposition home or self-care (01) ==
LOC: ER 05:56 → ERHOLD 09:16 → 4TH 14:09
PROVIDERS: ADMIT Hospitalist
DX: I44.0 Atrioventricular block, first degree (principal); R00.1 Bradycardia, unspecified; I48.11 Longstanding persistent atrial fibrillation; E03.9 Hypothyroidism, unspecified; R26.81 Unsteadiness on feet; R42 Dizziness and giddiness; J32.9 Chronic sinusitis, unspecified; R13.10 Dysphagia, unspecified; R55 Syncope and collapse; W18.30XA Fall on same level, unspecified, initial encounter; Z79.01 Long term (current) use of anticoagulants
CPT/HCPCS: 93005; 93306; 85025 ×2; 81001; 80048 ×2; 36415 ×2; 83735; 80061; 84443; 84484 ×4; 82306; 70450; 72125; 71045; 74230; 92611; 97112; 97116; 97161; J0360; J2405; 99285; G0378

== ENCOUNTER 2024-02-04 09:04 | Emergency (ER) | payer OTHER, BC ==
[2024-02-04 09:46] LABS: Absolute Basophils 0.1 K/uL (0-0.5); Absolute Eosinophils 0.4 K/uL (0-0.5); Absolute Lymphocytes (CBC) 3.1 K/uL (0.7-4.9); Absolute Monocytes 1.1 K/uL (0.1-1.3); Absolute Neutrophil 6.7 K/uL (1.8-8.0); Eosinophils % 3.2 % (0-4.4); Hematocrit 46.2 % (39.6-49.0); Hemoglobin 15.1 g/dL (13.6-17.9); Lymphocytes % 27.6 % (15.3-44.8); MCH 29.5 pg (27.0-35.0); MCHC 32.6 g/dL (32.0-36.0); MCV 90.5 fL (80-100); MPV 7.8 fL (7.6-11.3); Monocytes % 9.6 % (3.3-12.3); Neutrophils % 58.6 % (41.7-73.7); Platelets 302 thou/uL (152-406); Red Cell Distribution Width 13.1 % (12.1-15.2)
[2024-02-04 10:03] LABS: Anion Gap 9.2 mEq/L (5.0-15.0); Potassium 4.2 mEq/L (3.5-5.1); Troponin High Sensitivity 20.5 pg/mL (<58.9)
[2024-02-04 10:04] LABS: D-Dimer < 215 FEUng/mL (<500); PT Prothrombin Time 31.2 SECONDS (9.5-12.5); Protime INR 2.93
[2024-02-04] MEDS ORDERED: NA CHLORIDE 0.9% 1,000 ML ONE (10:04)
[2024-02-04 10:31] LABS: SARS-CoV-2 Antigen CONTROL BLUE LINE VIS/BG OK; SARS-CoV-2 Antigen Rapid Res Negative (Negative)
--- NOTE | 2024-02-04 10:35 | RAD REPORT ---
EXAM DESCRIPTION: RAD - Chest Pa And Lat (2 Views) - 02/04/2024 10:26 am CLINICAL HISTORY: COUGH Chest pain. COMPARISON: Chest Single View dated 01/25/2024; Chest Pa And Lat (2 Views) dated 09/15/2016; CHEST SIN GLE VIEW dated 12/06/2013; CHEST SINGLE VIEW dated 07/31/2012 FINDINGS: The lungs are clear. The heart is upper limit of normal in size. No displaced fractures. IMPRESSION: No acute or concerning finding suspected.
[2024-02-04 11:52] LABS: Specific Gravity < 1.005 (1.005-1.030); Sqamous Epithelial None Seen /HPF (None Seen); Urine Bacteria None Seen /HPF (<20); Urine Bilirubin NEGATIVE (Negative); Urine Blood Negative (Negative); Urine Clarity Clear (Clear); Urine Color Colorless (Yellow); Urine Culture Reflex Order NOT NEEDED; Urine Glucose NEGATIVE (Negative); Urine Ketones NEGATIVE (Negative); Urine Microscopic Reflex YN ORDER UMIC; Urine Nitrite NEGATIVE (Negative); Urine Protein NEGATIVE (Negative); Urine RBC <5 /HPF (None Seen); Urine Urobilinogen Normal (Normal); Urine WBC None Seen /HPF (<5); Urine pH 6.5 (5.0-7.0)
--- NOTE | 2024-02-04 12:03 | ER ---
Nurse's Notes [facility] Name: Edilberto Son Age: 88 yrs Sex: Male : 1935 Arrival Date: 02/04/2024 Time: 09:04 Bed 18 Private MD: Zay Duarte B Diagnosis: Weakness;care home (current) use of anticoagulants;Dyspnea-resolved Presentation: 02/03 09:19 Chief complaint: Patient states: was out walking, got shaky all of a sudden and then iw got very short of breath, starting to feel better now, denies chest pain, hx of Afib but states his HR stayed in the 50s. Coronavirus screen: At this time, the client does not indicate any symptoms associated with coronavirus-19. Ebola Screen: Patient negative for fever greater than or equal to 101.5 degrees Fahrenheit, and additional compatible Ebola Virus Disease symptoms Patient denies exposure to infectious person. Patient denies travel to an Ebola-affected area in the 21 days before illness onset. No symptoms or risks identified at this time. Initial Sepsis Screen: Does the patient meet any 2 criteria? No. Patient's initial sepsis screen is negative. Does the patient have a suspected source of infection? No. Patient's initial sepsis screen is negative. Risk Assessment: Do you want to hurt yourself or someone else? Patient reports no desire to harm self or others. Onset of symptoms was February 04, 2024. 09:19 Method Of Arrival: Wheelchair iw 09:19 Acuity: KANNAN 3 iw Triage Assessment: 09:07 General: Appears in no apparent distress. uncomfortable, Behavior is cooperative, rs5 anxious. Respiratory: Reports shortness of breath Onset: The symptoms/episode began/occurred the patient has mild shortness of breath. Historical: - Allergies: 09:21 No Known Allergies; iw - PMHx: : Atrial Fib; Hypothyroidism; iw - PSHx: :21 Appendectomy; iw - Immunization history:: Adult Immunizations up to date. - Social history:: Smoking status: Patient denies any tobacco usage or history of. Screenin:06 [facility] ED Fall Risk Assessment (Adult) History of falling in the last 3 months, rs5 including since admission No falls in past 3 months (0 pts) Confusion or Disorientation No (0 pts) Intoxicated or Sedated No (0 pts) Impaired Gait No (0 pts) Mobility Assist Device Used No (0 pt) Altered Elimination No (0 pt) Score/Fall Risk Level 0 - 2 = Low Risk Oriented to surroundings, Maintained a safe environment. 09:06 Abuse screen: Denies threats or abuse. Nutritional screening: No deficits noted. rs5 Tuberculosis screening: No symptoms or risk factors identified. Assessment: 09:06 General: Appears in no apparent distress. uncomfortable, Behavior is cooperative, rs5 anxious. Pain: Denies pain. Neuro: Level of Consciousness is awake, alert, obeys commands, Oriented to person, place, time, situation. Cardiovascular: Patient's skin is warm and dry. Rhythm is regular. Respiratory: Reports shortness of breath Airway is patent Respiratory effort is even, unlabored, Respiratory pattern is regular, symmetrical, Breath sounds are clear. 09:06 GI: Abdomen is round non-distended, Abd is soft and non tender X 4 quads. : No signs rs5 and/or symptoms were reported regarding the genitourinary system. EENT: No signs and/or symptoms were reported regarding the EENT system. Derm: Skin is intact, Skin is dry, Skin is pink, warm \T\ dry. Musculoskeletal: Range of motion: intact in all extremities. 10:15 Reassessment: Patient and/or family updated on plan of care and expected duration. Pain rs5 level reassessed. Patient is alert, oriented x 3, equal unlabored respirations, skin warm/dry/pink. Patient denies pain at this time. Patient states feeling better. Patient states symptoms have improved. General: Behavior is calm, cooperative. 11:12 Reassessment: No changes from previously documented assessment. rs5 12:01 Reassessment: Patient and/or family updated on plan of care and expected duration. Pain rs5 level reassessed. Patient is alert, oriented x 3, equal unlabored respirations, skin warm/dry/pink. Vital Signs: 09:20 BP 182 / 76; Pulse 55; Resp 19; Temp 97.8(TE); Pulse Ox 99% on R/A; Weight 79.38 kg; iw Height 5 ft. 10 in. ; Pain 0/10; 10:10 BP 170 / 78; Pulse 53; Resp 18; Pulse Ox 98% on R/A; rs5 12:01 BP 168 / 80; Pulse 57; Resp 17; Pulse Ox 99% on R/A; rs5 09:20 Body Mass Index 25.11 (79.38 kg, 177.8 cm) iw 09:20 Pain Scale: Adult iw ED Course: 09:05 Patient arrived in ED. rg4 09:05 Zay Duarte MD is Private Physician. rg4 09:05 Lavon Lerma MD is Attending Physician. victor hugo 09:06 Patient has correct armband on for positive identification. Placed in gown. Bed in low rs5 position. Call light in reach. Side rails up X2. 09:06 No provider procedures requiring assistance completed. rs5 09:11 Jostin Godinez, RONN is Primary Nurse. rs5 09:20 Triage completed. iw 09:20 Arm band placed on. iw 10:27 Chest Pa And Lat (2 Views) XRAY In Process Unspecified. EDMS 12:01 Zay Duarte MD is Referral Physician. victor hugo 12:20 IV discontinued, intact, bleeding controlled, No redness/swelling at site. Pressure rs5 dressing applied. Administered Medications: 10:15 Drug: NS 0.9% IV 1000 ml IV at 1 bolus Per protocol; 1000 mL bolus Route: IV; Rate: 1 rs5 bolus; Site: left antecubital; 10:30 Follow up: Response: No adverse reaction rs5 11:10 Follow up: Response: No adverse reaction rs5 12:07 Drug: Rocephin IV 1 grams IV at per protocol once; Given slow IV push per pharmacy rs5 instructions Route: IV; Rate: per protocol; Site: left antecubital; 12:30 Follow up: Response: No adverse reaction rs5 Medication: 09:40 VIS not applicable for this client. rs5 Outcome: 12:01 Discharge ordered by . victor hugo 12:24 Patient left the ED. rs5 12:24 Discharged to home ambulatory, rs5 12:24 Condition: stable 12:24 Discharge instructions given to patient, Instructed on discharge instructions, follow up and referral plans. Demonstrated understanding of instructions, follow-up care, Signatures: Dispatcher [employer] EDAR Lavon Lerma MD MD cha Williams, Irene, RN RN iw Jennifer Ewing rg4 Jostin Godinez, RONN RN rs5 Corrections: (The following items were deleted from the chart) 09:40 09:20 BP 182 / 76; Pulse 55bpm; Resp 19bpm; Pulse Ox 99% RA; 79.38 kg; Height 5 ft. 10 iw in.; BMI: 25.1; Pain 0/10, Adult; iw 12:51 09:06 Respiratory: Airway is patent Respiratory effort is even, unlabored, Respiratory rs5 pattern is regular, symmetrical, Breath sounds are clear rs5 12:54 12:29 Patient left the ED. rs5 rs5
--- NOTE | 2024-02-04 12:03 | EDPHYS ---
Physician Documentation [facility] Name: Edilberto Son Age: 88 yrs Sex: Male : 1935 Arrival Date: 02/04/2024 Time: 09:04 Bed 18 Private MD: Zay Duarte B ED Physician Lavon Lerma HPI: 02/03 11:54 This 88 yrs old Male presents to ER via Wheelchair with complaints of victor hugo Breathing Difficulty. 11:54 The patient has shortness of breath at rest, with light activity. Onset: The victor hugo symptoms/episode began/occurred just prior to arrival. Duration: The symptoms resolved. The patient's shortness of breath has no apparent modifying factors. Associated signs and symptoms: Pertinent positives: non-productive cough. Severity of symptoms: At their worst the symptoms were mild moderate in the emergency department the symptoms have improved moderately. The patient has not experienced similar symptoms in the past. Historical: - Allergies: 09:21 No Known Allergies; iw - PMHx: 09:21 Atrial Fib; Hypothyroidism; iw - PSHx: 09:21 Appendectomy; iw - Immunization history:: Adult Immunizations up to date. - Social history:: Smoking status: Patient denies any tobacco usage or history of. ROS: 11:57 Constitutional: Negative for fever, chills, and weight loss, Eyes: Negative for injury, victor hugo pain, redness, and discharge, ENT: Negative for injury, pain, and discharge, Neck: Negative for injury, pain, and swelling, Cardiovascular: Negative for chest pain, palpitations, and edema, Abdomen/GI: Negative for abdominal pain, nausea, vomiting, diarrhea, and constipation, Back: Negative for injury and pain, : Negative for injury, bleeding, discharge, and swelling, MS/Extremity: Negative for injury and deformity, Skin: Negative for injury, rash, and discoloration, Neuro: Negative for headache, weakness, numbness, tingling, and seizure, Psych: Negative for depression, anxiety, suicide ideation, homicidal ideation, and hallucinations, Allergy/Immunology: Negative for hives, rash, and allergies, Endocrine: Negative for neck swelling, polydipsia, polyuria, polyphagia, and marked weight changes, Hematologic/Lymphatic: Negative for swollen nodes, abnormal bleeding, and unusual bruising, 11:57 Respiratory: Positive for cough, shortness of breath, at rest. Exam: 11:57 Constitutional: This is a well developed, well nourished patient who is awake, alert, victor hugo and in no acute distress. Head/Face: Normocephalic, atraumatic. Eyes: Pupils equal round and reactive to light, extra-ocular motions intact. Lids and lashes normal. Conjunctiva and sclera are non-icteric and not injected. Cornea within normal limits. Periorbital areas with no swelling, redness, or edema. ENT: Nares patent. No nasal discharge, no septal abnormalities noted. Tympanic membranes are normal and external auditory canals are clear. Oropharynx with no redness, swelling, or masses, exudates, or evidence of obstruction, uvula midline. Mucous membranes moist. Neck: Trachea midline, no thyromegaly or masses palpated, and no cervical lymphadenopathy. Supple, full range of motion without nuchal rigidity, or vertebral point tenderness. No Meningismus. Chest/axilla: Normal chest wall appearance and motion. Nontender with no deformity. No lesions are appreciated. Cardiovascular: Regular rate and rhythm with a normal S1 and S2. No gallops, murmurs, or rubs. Normal PMI, no JVD. No pulse deficits. Respiratory: Lungs have equal breath sounds bilaterally, clear to auscultation and percussion. No rales, rhonchi or wheezes noted. No increased work of breathing, no retractions or nasal flaring. Abdomen/GI: Soft, non-tender, with normal bowel sounds. No distension or tympany. No guarding or rebound. No evidence of tenderness throughout. Back: No spinal tenderness. No costovertebral tenderness. Full range of motion. Male : Normal genitalia with no discharge or lesions. Skin: Warm, dry with normal turgor. Normal color with no rashes, no lesions, and no evidence of cellulitis. MS/ Extremity: Pulses equal, no cyanosis. Neurovascular intact. Full, normal range of motion. Neuro: Awake and alert, GCS 15, oriented to person, place, time, and situation. Cranial nerves II-XII grossly intact. Motor strength 5/5 in all extremities. Sensory grossly intact. Cerebellar exam normal. Normal gait. Psych: Awake, alert, with orientation to person, place and time. Behavior, mood, and affect are within normal limits. 11:57 ECG was reviewed by the Attending Physician. Vital Signs: 09:20 BP 182 / 76; Pulse 55; Resp 19; Temp 97.8(TE); Pulse Ox 99% on R/A; Weight 79.38 kg; iw Height 5 ft. 10 in. ; Pain 0/10; 10:10 BP 170 / 78; Pulse 53; Resp 18; Pulse Ox 98% on R/A; rs5 12:01 BP 168 / 80; Pulse 57; Resp 17; Pulse Ox 99% on R/A; rs5 09:20 Body Mass Index 25.11 (79.38 kg, 177.8 cm) iw 09:20 Pain Scale: Adult iw MDM: 09:06 Patient medically screened. [facility] 11:59 Differential diagnosis: Anemia asthma, Bronchitis CHF exacerbation, Chronic Obstructive victor hugo Pulmonary Disease pulmonary edema, Pulmonary Embolism reactive airway disease, Sepsis Unstable Angina. Antibiotic administration: Not indicated. Differential Diagnosis altered mental status, sepsis, flu. Immunization status: Pneumococcal vaccine: within last 5 years. Influenza vaccine: within last 5 years. Data reviewed: vital signs, nurses notes, lab test result(s), CBC, electrolytes, urinalysis, EKG, radiologic studies. Consideration of Admission/Observation Escalation of care including admission/observation considered. I considered the following discharge prescriptions or medication management in the emergency department Medications were administered in the Emergency Department. See MAR. Independent interpretation of the following test(s) in the Emergency Department EKG: See my EKG interpretation above. Test considered but Not performed: Ultrasound no abd usg. 02/03 09:21 Order name: Basic Metabolic Panel; Complete Time: 11:03 02/03 09:21 Order name: CBC with Diff; Complete Time: 11:03 02/03 09:21 Order name: Troponin HS; Complete Time: 11:03 02/03 09:34 Order name: Glucose, Ancillary Testing; Complete Time: 11:03 EDMS 02/03 09:38 Order name: Blood Culture Adult (2) [facility] 02/03 09:38 Order name: Lactate w/ 2H reflex if indic.; Complete Time: 11:03 [facility] 02/03 09:38 Order name: Flu; Complete Time: 11:03 [facility] 02/03 09:38 Order name: SARS RAPID; Complete Time: 11:03 [facility] 02/03 09:38 Order name: PT-INR; Complete Time: 11:03 [facility] 02/03 09:55 Order name: D-Dimer; Complete Time: 11:03 EDMS 02/03 10:09 Order name: NT PRO-BNP; Complete Time: 11:03 EDND 02/03 11:04 Order name: Urinalysis w/ reflexes; Complete Time: 11:54 [facility] 02/03 09:39 Order name: Chest Pa And Lat (2 Views) XRAY; Complete Time: 11:03 [facility] 02/03 09:21 Order name: EKG; Complete Time: : iw 02/03 09:21 Order name: Cardiac monitoring; Complete Time: : iw 02/03 09:21 Order name: EKG - Nurse/Tech; Complete Time: : iw 02/03 09:21 Order name: IV Saline Lock; Complete Time: : iw 02/03 09:21 Order name: Labs collected and sent; Complete Time: : iw 02/03 09:21 Order name: O2 Per Protocol; Complete Time: iw 02/03 09:21 Order name: O2 Sat Monitoring; Complete Time: :30 iw EC:57 Rate is 56 beats/min. Rhythm is regular. QRS Thelma is Normal. RI interval is prolonged victor hugo at 264 msec. QRS interval is normal. QT interval is normal. No Q waves. T waves are Normal. No ST changes noted. Clinical impression: NSR w/ Non-specific ST/T Changes, 1st degree heart block, and No evidence of ischemia. Interpreted by me. Reviewed by me. Administered Medications: 10:15 Drug: NS 0.9% IV 1000 ml IV at 1 bolus Per protocol; 1000 mL bolus Route: IV; Rate: 1 rs5 bolus; Site: left antecubital; 10:30 Follow up: Response: No adverse reaction rs5 11:10 Follow up: Response: No adverse reaction rs5 12:07 Drug: Rocephin IV 1 grams IV at per protocol once; Given slow IV push per pharmacy rs5 instructions Route: IV; Rate: per protocol; Site: left antecubital; 12:30 Follow up: Response: No adverse reaction rs5 Disposition Summary: 02/04/24 12:01 Discharge Ordered Notes: Location: Home victor hugo Problem: new victor hugo Symptoms: have improved victor hugo Condition: Stable victor hugo Diagnosis - 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 victor hugo - Dyspnea - resolved victor hugo Followup: victor hugo - With: Zay Duarte MD - When: 2 - 3 days - Reason: Recheck today's complaints, Continuance of care, Re-evaluation by your physician Discharge Instructions: - Discharge Summary Sheet victor hugo - Atrial Fibrillation victor hugo - Weakness victor hugo - Fatigue victor hugo - Weakness, [id number] victor hugo - Atrial Fibrillation, Uxhd-of-Kgup victor hugo - Deconditioning victor hugo Forms: - Medication Reconciliation Form victor hugo - Thank You Letter victor hugo - Antibiotic Education victor hugo - Prescription Opioid Use victor hugo - Patient Portal Instructions victor hugo - Leadership Thank You Letter victor hugo Signatures: Dispatcher [employer] EDMS Lavon Lerma MD MD cha Williams, Irene RN RN iw Jostin Godinez RN RN rs5 Corrections: (The following items were deleted from the chart) 09:47 09:22 Chest Single View+RAD.RAD.BRZ ordered. EDMS EDMS 09:55 09:39 D-DIMER+COAG.LAB.BRZ ordered. EDMS EDMS 10:09 09:39 PROBNP+C.LAB.BRZ ordered. EDMS EDMS
[2024-02-04] MEDS ORDERED: CEFTRIAXONE 1000 MG/VIAL ONE (12:04)
[2024-02-04 12:53] VITALS: BP 182/76; TEMP 97.8; O2SAT 99
--- NOTE | 2024-02-05 11:54 | EKG ---
Test Date: 2024-02-04 Test Time: 09:02:38 Saloonkeeper: ANDREI MEASUREMENT RESULTS: Intervals: Rate: 56 WV: 264 QRSD: 98 QT: 428 QTc: 413 Bob White: P: 56 WV: 264 QRS: -42 T: 63 INTERPRETIVE STATEMENTS: Sinus bradycardia with 1st degree AV block Left axis deviation Incomplete right bundle branch block Voltage criteria for left ventricular hypertrophy Abnormal ECG Compared to ECG 01/25/2024 05:11:14 Incomplete right bundle-branch block now present Early repolarization no longer present Electronically Signed On 02-05-24 11:49:41 CDT by Loco Pena
== END 2024-02-04 12:29 | disposition home or self-care (01) ==
LOC: ER 09:04
DX: R53.1 Weakness (principal); Z79.01 Long term (current) use of anticoagulants; R05.9 Cough, unspecified; I48.91 Unspecified atrial fibrillation; Z11.52 Encounter for screening for COVID-19
CPT/HCPCS: 93005; 87040 ×2; 85025; 81001; 80048; 36415; 85610; 82947; 85379; 83605; 84484; 83880; 87804 ×2; 71046; 96374; 99284; 87811; J7030; J0696

== ENCOUNTER 2024-12-26 09:31 | Day surgery (SDC) | payer OTHER, BC ==
[2024-12-23 10:26] LABS: Absolute Eosinophils 0.3 K/uL (0-0.5); Absolute Lymphocytes (CBC) 1.9 K/uL (0.7-4.9); Basophils % 0.4 % (0-1.3); Eosinophils % 3.3 % (0-4.4); Hematocrit 47.5 % (39.6-49.0); Hemoglobin 15.6 g/dL (13.6-17.9); Lymphocytes % 18.4 % (15.3-44.8); MCH 29.8 pg (27.0-35.0); MCHC 32.9 g/dL (32.0-36.0); MCV 90.8 fL (80-100); MPV 8.3 fL (7.6-11.3); Monocytes % 9.4 % (3.3-12.3); Neutrophils % 68.5 % (41.7-73.7); Platelets 208 thou/uL (152-406); RBC Red Blood Cell Count 5.23 M/uL (4.33-5.43); Red Cell Distribution Width 13.3 % (12.1-15.2)
[2024-12-23 10:31] LABS: PT Prothrombin Time 12.2 SECONDS (9.4-12.5); PTT, Activated Partial Thromb 31.7 SECONDS (24.3-36.9); Protime INR 1.16
[2024-12-23 10:37] LABS: Anion Gap 6.4 mEq/L (5.0-15.0); Potassium 4.4 mEq/L (3.5-5.1)
--- NOTE | 2024-12-23 14:22 | RAD REPORT ---
EXAMINATION: TWO VIEW CHEST XR CLINICAL INDICATION: Male, 89 years old. [facility] MA[facility] pre op for day surgery. Hypertension TECHNIQUE: 2 view radiographs of the chest were performed. COMPARISON: 02/04/2024 FINDINGS: The lungs are well inflated and clear. No pneumothorax or sizable effusion. The heart is normal in si ze. Mediastinal contours are unchanged with tortuosity of the thoracic aorta. Interval placement of left chest wall pacer/AICD. IMPRESSION: No acute or significant abnormalities.
[2024-12-26] MEDS: Ringers Lactate 1,000 ML IV ONE (10:17)
[2024-12-26] MEDS ORDERED: FENTANYL CITR 100 MCG/2 ML ONE (11:31)
[2024-12-26] MEDS ORDERED: propofoL 200 MG/20 ML VIAL IV ONE (11:31)
[2024-12-26] MEDS ORDERED: LIDOCAINE 1% MPF 5 ML VIAL ONE (11:31)
[2024-12-26] MEDS: CEFAZOLIN SODIUM 1 GM/VIAL ONE (12:20)
--- NOTE | 2024-12-26 12:37 | P.BOP ---
Preoperative diagnosis: tender infected posterior neck subQ mass Postoperative diagnosis: same Primary procedure: Excisional biopsy of tender infected posterior neck subQ mass 4x4cm Estimated blood loss: <10cc Specimen: mass Findings: mass Anesthesia: General Complications: None Transferred to: Recovery Room Condition: Good
[2024-12-26 12:55] VITALS: O2SAT 100
[2024-12-26 16:06] VITALS: BP 142/84; TEMP 97
--- NOTE | 2024-12-26 20:15 | OP ---
Date of Procedure: 12/26/2024 Surgeon: Leeroy Acosta MD Preoperative Diagnosis: Tender infected posterior neck subcutaneous mass. Postoperative Diagnosis: Tender infected posterior neck subcutaneous mass. Procedure: Excisional biopsy of tender infected posterior neck subcutaneous mass, 4 x 4 cm. Estimated Blood Loss: Less than 10 cc. Specimen: Mass. Findings: Mass. Anesthesia: General plus local. Indications: This is a case of an 89-year-old patient who comes to us with an infected posterior nec k mass. Given pain and discomfort, he wants that excised. The benefits, alternatives, and risks of excision were fully explained, which include, but not limited to infection, bleeding, damage to adjac ent structures, anesthesia complication, recurrence, PR, and even . He also understands this ma y not relieve the symptoms. He might need more than one surgical intervention. He understood, juana d a consent. Description Of Procedure: The patient was brought to the operating room, placed in supine position. Anesthesia was done without complication. The patient was placed in left lateral decubitus position with proper protection. The area of concern was previously marked by me and the patient in the hold ing room. So, that area was prepped and draped in a sterile fashion and time-out was called. A wedg e incision was made in the skin all the way down to deep subcutaneous tissue. This mass goes to the muscle, does not penetrate the muscle. The mass was completely excised. Area was irrigated. We pro ceeded to close this in layers, 3-0 chromic in deep layers, mid layers, and then the skin with nylon. Hemostasis and irrigation were obtained before closure. Local anesthetic was also before closure. No abscess seen. The patient sent to recovery in stable condition. NIXON/MEGHA Voice ID: [id number] Report ID: [id number]
== END 2024-12-26 14:15 | disposition home or self-care (01) ==
LOC: OR 09:31
PROVIDERS: ATTEND Surgery
PROC: 0JB40ZZ Excision of Right Neck Subcutaneous Tissue and Fascia, Open Approach (ICD-10-PCS; 2024-12-26)
PROC: 0JB50ZZ Excision of Left Neck Subcutaneous Tissue and Fascia, Open Approach (ICD-10-PCS; principal; 2024-12-26 12:15)
DX: L72.0 Epidermal cyst (principal)
CPT/HCPCS: 93005; 87070; 85025; 80048; 36415; 87205; 85610; 85730; 87075; 71046; 11424; J2704; J2003; J3010; J7120; J0690; 88304